=== PATIENT | male | born 1985 | race Caucasian/White ===

== ENCOUNTER → 2020-10-14 | Day surgery (SDC) | payer OTHER ==
[~2020-10-14] MED LIST: BLACK SEED OIL; BUSPIRONE HCL30 MG PO; CLONAZEPAM 1MG T1 MG PO; CYCLOBENZAPRINE10 MG PO; ECHINACEA & GO1 EACH PO; GABAPENTIN300 MG PO; GLUCOSAMIN-CHO1 EACH PO; GOLDENSEAL325 MG PO; HYDROXYZINE HCL50 MG PO; LISINOPRIL10 MG PO; NORCO 5/3251 EACH PO; ONE DAILY FOR1 EAC1 PO; PROBIOTIC1 EAC2 PO; PROPRANOLOL HCL40 MG PO; TURMERIC500 M1 PO
[2020-10-14 09:40] LABS: HCT 39.1 % (42.0-52.0); HGB 13.2 g/dl (13.2-18.0); MCH 31.1 pg (25.0-31.0); MCHC 33.8 g/dL (32.0-36.0); MCV 92.2 fL (78.0-100.0); MPV 9.6 fL (6.0-9.5); RBC 4.24 M/uL (4.70-6.00); RDW 11.7 % (11.5-14.0); WBC 4.4 K/uL (4.0-10.5)
[2020-10-14 10:18] LABS: ALBUMIN 3.8 g/dL (3.4-5.0); BILIRUBIN - TOTAL 0.5 mg/dL (0.2-1.0); BUN/CREAT RATIO (CALC) 13.8 RATIO; CREATININE 0.94 mg/dL (0.67-1.17); TOTAL PROTEIN 6.8 g/dL (6.4-8.2)
== END | disposition home or self-care (01) ==
LOC: FAS 10-03 08:25
PROVIDERS: Surgery
DX: K29.70 Gastritis, unspecified, without bleeding (principal); K58.9 Irritable bowel syndrome, unspecified; H54.7 Unspecified visual loss; J45.909 Unspecified asthma, uncomplicated; I10 Essential (primary) hypertension; G47.33 Obstructive sleep apnea (adult) (pediatric); E78.00 Pure hypercholesterolemia, unspecified; Z86.2 Personal history of diseases of the blood and blood-forming organs and certain disorders involving the immune mechanism; Z87.448 Personal history of other diseases of urinary system; Z87.891 Personal history of nicotine dependence; Z88.1 Allergy status to other antibiotic agents; Z95.5 Presence of coronary angioplasty implant and graft
CPT/HCPCS: 36415; 80053; J2250; J2704; J7120